=== PATIENT | female | born 1940 | race Caucasian/White ===

== ENCOUNTER 2021-06-30 14:50 | Emergency (ER) | payer OTHER, BC ==
[2021-06-30 15:05] VITALS: BP 139/72; PULSE 79; TEMP 97.8; BMI 29.7
[2021-06-30] MEDS ORDERED: TETANUS AND DIPHTHERIA TOXOID 0.5 ML DISP.SYRIN IM ONE (15:32)
[2021-06-30] MEDS ORDERED: DIPHTH,PERTUSS(ACELL),TET 0.5 ML DISP.SYRIN IM ONE (15:35)
== END 2021-06-30 15:45 | disposition home or self-care (01) ==
LOC: FER 14:50
PROC: 3E0234Z Introduction of Serum, Toxoid and Vaccine into Muscle, Percutaneous Approach (ICD-10-PCS; principal; 2021-06-30)
PROC: 0HQFXZZ Repair Right Hand Skin, External Approach (ICD-10-PCS; 2021-06-30)
DX: S61.411A Laceration without foreign body of right hand, initial encounter (principal); W54.0XXA Bitten by dog, initial encounter
CPT/HCPCS: 99284-25

== ENCOUNTER 2021-07-03 12:52 | Emergency (ER) | payer OTHER, BC ==
[2021-07-03 13:13] VITALS: BP 145/57; PULSE 72; TEMP 98; BMI 29.7
== END 2021-07-03 13:10 | disposition home or self-care (01) ==
LOC: FER 12:52
DX: S61.451A Open bite of right hand, initial encounter (principal); W54.0XXA Bitten by dog, initial encounter; Z48.00 Encounter for change or removal of nonsurgical wound dressing
CPT/HCPCS: 99281-25

== ENCOUNTER 2024-06-05 16:43 | Emergency (ER) | payer BC, OTHER ==
[2024-06-05 18:12] VITALS: BP 157/71; PULSE 89; RESP 20; TEMP 98.3; BMI 27.4
== END 2024-06-05 20:44 | disposition home or self-care (01) ==
LOC: FER 16:43
DX: S82.002A Unspecified fracture of left patella, initial encounter for closed fracture (principal); W06.XXXA Fall from bed, initial encounter
CPT/HCPCS: 73562-TC-LT-FY; 99283-25